=== PATIENT | female | born 1975 | race African-American/Black ===

== ENCOUNTER 2016-06-21 15:35 | Emergency (ER) | payer OTHER ==
[2016-06-21] MEDS ORDERED: KETOROLAC 30 MG/ML VIAL ONE (17:50)
[2016-06-21] MEDS ORDERED: SODIUM CHLORIDE 0.9% 1,000 ML ONE (17:50)
== END 2016-06-21 20:06 | disposition home or self-care (01) ==
LOC: EDBD 15:35 → ER 15:35
DX: R10.32 Left lower quadrant pain (principal)
CPT/HCPCS: 36415 ×2; 74176 ×2; 80053 ×2; 81001 ×2; 83690 ×2; 84703 ×2; 85025 ×2; 87077 ×2; 87088 ×2; 87186 ×2; 96361 ×2; 96374 ×2; 99284; J1885